=== PATIENT | female | born 1940 | race Caucasian/White ===

== ENCOUNTER 2022-12-06 18:45 | Emergency (ER) | payer MEDICARE, MEDICAID ==
[~2022-12-06] VITALS: Ht 180.3 cm; Wt 79.5 kg
[~2022-12-06 18:45] MED LIST: CELE-193 PO; CETI10CA PO; HYDR25TA4 PO; LISI40TA13 PO; METF500T PO; MULT-1085 PO; NIFE30TA8 PO; OMEP20CA15 PO; SIMV-42 PO; SYN0.088T PO
[2022-12-06 19:06] LABS: BASOPHILS # (AUTO) 0.1 X10'3 (0-0.2); BASOPHILS % (AUTO) 0.6 % (0-1); EOSINOPHILS # (AUTO) 0.3 X10'3 (0-0.9); EOSINOPHILS % (AUTO) 2.7 % (0-6); HEMATOCRIT 38.1 % (35.0-45.0); HEMOGLOBIN 12.9 g/dl (12.0-16.0); LYMPHOCYTES # (AUTO) 4.3 X10'3 (1.1-4.8); LYMPHOCYTES % (AUTO) 42.6 % (21-51); MEAN CORPUSCULAR HEMOGLOBIN 31.3 PG (27.0-31.0); MEAN CORPUSCULAR HGB CONC 33.7 g/dL (33.0-36.5); MEAN CORPUSCULAR VOLUME 92.6 FL (78-98); MEAN PLATELET VOLUME 8.7 FL (7.4-10.4); MONOCYTES # (AUTO) 0.7 X10'3 (0-0.9); MONOCYTES % (AUTO) 6.7 % (2-12); NEUTROPHILS # (AUTO) 4.8 X10'3 (1.8-7.7); NEUTROPHILS % (AUTO) 47.4 % (42-75); PLATELET COUNT 294 X10'3 (140-440); RED BLOOD COUNT 4.11 X10'6 (4.20-5.60); RED CELL DISTRIBUTION WIDTH 13.5 % (11.5-14.5); WHITE BLOOD COUNT 10.1 X10'3 (4.5-11.0)
[2022-12-06 19:21] LABS: ALANINE AMINOTRANSFERASE 23 U/L (12-78); ALBUMIN 3.3 G/DL (3.4-5.0); ALBUMIN/GLOBULIN RATIO 0.9 (1.1-1.5); ALKALINE PHOSPHATASE 116 IU/L (46-116); ANION GAP 10 (8-16); ASPARTATE AMINO TRANSFERASE 38 U/L (10-37); BILIRUBIN,TOTAL 0.4 MG/DL (0.1-1.0); BLOOD UREA NITROGEN 17 MG/DL (7-18); BUN/CREATININE RATIO 17.7 (10.0-20.0); CALCIUM 9.4 MG/DL (8.5-10.1); CHLORIDE 94 MMOL/L (99-107); CREATININE 0.96 MG/DL (0.40-0.90); GLUCOSE 153 MG/DL (70-104); POTASSIUM 4.3 MMOL/L (3.5-5.1); SODIUM 128 MMOL/L (135-145); TOTAL CARBON DIOXIDE 23.9 MMOL/L (24-32); eGFR 55 ML/MIN
[2022-12-06 19:30] LABS: MAGNESIUM 1.2 MG/DL (1.5-2.4)
[2022-12-06] MEDS ORDERED: LIDOcaine Viscous 15ml cup MM ONE (19:45)
[2022-12-06] MEDS ORDERED: mag hydrox/Alum hydrox/simeth 30ml oral suspension PO ONE (19:45)
--- NOTE | 2022-12-06 21:31 | NUR ---
MD aware of abnormal sodium level of 128, no orders at this time.
[2022-12-06 21:37] VITALS: BP 149/62
== END 2022-12-06 23:33 | disposition home or self-care (01) ==
LOC: ER 18:46
DX: R07.9 Chest pain, unspecified (principal); R11.0 Nausea; R06.02 Shortness of breath; E78.00 Pure hypercholesterolemia, unspecified; I10 Essential (primary) hypertension; K21.9 Gastro-esophageal reflux disease without esophagitis; E03.9 Hypothyroidism, unspecified; Z88.5 Allergy status to narcotic agent; Z91.018 Allergy to other foods
CPT/HCPCS: 36415; 71045; 80053; 83735; 83880; 84484; 85025; 93005; 99285

== ENCOUNTER 2023-01-30 19:21 | Inpatient (IN) | payer MEDICARE, MEDICAID ==
[~2023-01-30] VITALS: Ht 154.9 cm; Wt 76.8 kg
[2023-01-30 19:48] LABS: BASOPHILS % (AUTO) 0.1 % (0-1); EOSINOPHILS % (AUTO) 0.4 % (0-6); HEMATOCRIT 35.2 % (35.0-45.0); HEMOGLOBIN 11.5 g/dl (12.0-16.0); LYMPHOCYTES # (AUTO) 0.3 X10'3 (1.1-4.8); MEAN CORPUSCULAR HEMOGLOBIN 31.2 PG (27.0-31.0); MEAN CORPUSCULAR HGB CONC 32.8 g/dL (33.0-36.5); MEAN CORPUSCULAR VOLUME 95.1 FL (78-98); MEAN PLATELET VOLUME 8.8 FL (7.4-10.4); MONOCYTES % (AUTO) 0.2 % (2-12); NEUTROPHILS # (AUTO) 7.1 X10'3 (1.8-7.7); NEUTROPHILS % (AUTO) 95.3 % (42-75); PLATELET COUNT 135 X10'3 (140-440); RED BLOOD COUNT 3.71 X10'6 (4.20-5.60); RED CELL DISTRIBUTION WIDTH 14.3 % (11.5-14.5); WHITE BLOOD COUNT 7.5 X10'3 (4.5-11.0)
[2023-01-30 19:59] LABS: ALANINE AMINOTRANSFERASE 243 U/L (12-78); ALBUMIN 2.3 G/DL (3.4-5.0); ALBUMIN/GLOBULIN RATIO 0.7 (1.1-1.5); ALKALINE PHOSPHATASE 515 IU/L (46-116); ANION GAP 20 (8-16); ASPARTATE AMINO TRANSFERASE 253 U/L (10-37); BILIRUBIN,TOTAL 2.4 MG/DL (0.1-1.0); BLOOD UREA NITROGEN 26 MG/DL (7-18); BUN/CREATININE RATIO 17.2 (10.0-20.0); CHLORIDE 101 MMOL/L (99-107); CREATININE 1.51 MG/DL (0.40-0.90); GLUCOSE 111 MG/DL (70-104); POTASSIUM 3.1 MMOL/L (3.5-5.1); SODIUM 136 MMOL/L (135-145); TOTAL PROTEIN 5.5 G/DL (6.4-8.2); eGFR 33 ML/MIN
[2023-01-30 20:14] LABS: PLATELET ESTIMATE DECREASED; TOTAL CELLS COUNTED 100
[2023-01-30 20:15] LABS: TOXIC GRANULATION 2+; TOXIC VACUOLATION 1+
[2023-01-30 20:18] LABS: GIANT PLATELET FEW
[2023-01-30] MEDS ORDERED: CefTRIAXone/D5W-Rocephin 1gm 50 ML IV ONE (22:45)
[2023-01-30] MEDS ORDERED: normal saline 1000ml 1,000 ML IV ONE ×2 (22:45→22:50)
[2023-01-30] MEDS ORDERED: azithromycin/NS 500mg/250ml 250 ML IV ONE (22:45)
[2023-01-30] MEDS ORDERED: acetaminophen 325mg tablet PO ONE (23:15)
[2023-01-31] MEDS ORDERED: magnesium 2GM in 50ml NS 50 ML IV PRN (00:05)
[2023-01-31] MEDS ORDERED: ipratropium/albuterol 3ml nebule NEB PRN ×2 (00:05)
[2023-01-31] MEDS ORDERED: ondansetron/PF 4mg/2ml inj IV PRN (00:05)
[2023-01-31] MEDS ORDERED: magnesium 4gm in 100ml NS 100 ML IV PRN (00:05)
[2023-01-31] MEDS ORDERED: PERFLUTREN PROTEIN-A MICROSPHR (Optison) 0.22 MG/ML 3ML VIAL IV ONE (00:05)
[2023-01-31] MEDS ORDERED: potassium Cl 40MEQ/1/2NS 520ml 520 ML IV PRN (00:05)
[2023-01-31 00:25] LABS: CLARITY,URINE TURBID (Clear); COLOR,URINE YELLOW (Yellow); GLUCOSE, URINE NEGATIVE (Neg); KETONES,URINE TRACE mg/dl (Neg); LEUKOCYTE ESTERASE ,URINE MODERATE (Neg); NITRITES, URINE NEGATIVE (Neg); OCCULT BLOOD,URINE NEGATIVE (Neg); PH,URINE 5.5 (4.8-8.0); PROTEIN,URINE 30 mg/dl (Neg)
[2023-01-31 00:32] LABS: UA COLLECTION TYPE CLN CATCH MIDSTREAM
[2023-01-31 00:33] LABS: SQUAMOUS EPITHELIAL CELL,UR MANY /LPF (FEW)
[2023-01-31 00:34] LABS: BACTERIA,URINE 4+ /HPF (Neg); TRANSITIONAL EPI CELLS,URINE MODERATE /HPF; WBC,URINE TNTC /HPF (0-4)
[2023-01-31 00:35] LABS: RBC,URINE 0-2 /HPF (0-2)
--- NOTE | 2023-01-31 02:04 | NUR ---
DR CHAUDHARI PAGED REGARDING PTS BP 91/51
--- NOTE | 2023-01-31 02:09 | NUR ---
PER DR CHAUDHARI REPEAT LACTIC ACID AND GIVE 250 CC BS BOLUS
[2023-01-31] MEDS ORDERED: HYDR12.55 PO (02:51)
[2023-01-31] MEDS ORDERED: GABA300C PO (02:51)
[2023-01-31] MEDS ORDERED: NITR0.4T SL (02:51)
[2023-01-31] MEDS ORDERED: DICL-345 PO (03:11)
[2023-01-31] MEDS ORDERED: MONT-40 PO (03:11)
[2023-01-31] MEDS ORDERED: LEVO112T5 PO (03:11)
[2023-01-31] MEDS ORDERED: PRAV40TA3 PO (03:11)
[2023-01-31] MEDS ORDERED: FLUT16SP26 BOTHNARES (03:11)
[2023-01-31] MEDS ORDERED: BACL-11 PO (03:11)
[2023-01-31] MEDS ORDERED: BUDE10.2 IH (03:11)
[2023-01-31 04:38] LABS: POTASSIUM 2.9 MMOL/L (3.5-5.1)
[2023-01-31 04:39] LABS: MAGNESIUM 0.7 MG/DL (1.5-2.4)
[2023-01-31] MEDS: potassium Cl 20 mEq SR tablet PO PRN ×2 (04:44→09:42)
[2023-01-31] MEDS: magnesium Cl slow-release 64mg tablet PO PRN ×2 (04:45→20:00)
[2023-01-31] MEDS: sodium bicarbonate (8.4%) inj. 100 MEQ in dextrose 5%-water 1,000 ML IV SCH ×2 (06:27→17:43)
--- NOTE | 2023-01-31 06:29 | NUR ---
Introduced role and self to patient, patient alert, oriented at this time and with no current needs at this time. Updated on pending bed placement and bicarb drip.
--- NOTE | 2023-01-31 07:03 | NUR ---
Patient in room ED 7. I have received report from Husam pat and had the opportunity to ask questions and awaiting patients arrival
[2023-01-31] MEDS: K and/or MAG REPLACEMENT MC SCH ×2 (08:00→20:11)
[2023-01-31 09:11] LABS: ALANINE AMINOTRANSFERASE 215 U/L (12-78); ALBUMIN 2.2 G/DL (3.4-5.0); ALBUMIN/GLOBULIN RATIO 0.6 (1.1-1.5); ALKALINE PHOSPHATASE 179 IU/L (46-116); ANION GAP 14 (8-16); ASPARTATE AMINO TRANSFERASE 184 U/L (10-37); BLOOD UREA NITROGEN 29 MG/DL (7-18); BUN/CREATININE RATIO 19.6 (10.0-20.0); CALCIUM 7.4 MG/DL (8.5-10.1); CHLORIDE 102 MMOL/L (99-107); CREATININE 1.48 MG/DL (0.40-0.90); GLUCOSE 123 MG/DL (70-104); POTASSIUM 3.8 MMOL/L (3.5-5.1); SODIUM 131 MMOL/L (135-145); TOTAL CARBON DIOXIDE 15.1 MMOL/L (24-32); TOTAL PROTEIN 5.7 G/DL (6.4-8.2); eGFR 34 ML/MIN
[2023-01-31] MEDS: piperacillin/tazo 4.5gm/100ml 100 ML IV SCH ×2 (09:40→16:33)
[2023-01-31 09:54] VITALS: BP 124/55; PULSE 81; RESP 20; TEMP 98.2; O2SAT 95
--- NOTE | 2023-01-31 10:19 | NUR ---
REPORTED CRITICAL LAB VALUE TO PRIMARY RN
[2023-01-31 10:59] LABS: ABG BASE EXCESS -10.3 mmol/L (-2.0-2.0); ABG HCO3 13.3 mmol/L (22.0-26.0); ABG OXYGEN SATURATION 97.2 % (94-97); ABG PCO2 (T) 23.9 mmHg (32.0-45.0); ABG PO2 (T) 100.2 mmHg (75.0-100.0); ALLEN'S TEST POSITIVE; FCOHb 0.3 % (0.0-3.9); FMetHb 0.2 % (0.0-1.5); FO2Hb 96.7 % (94-97); PATIENT TEMPERATURE 37.2; TOTAL HEMOGLOBIN 11.4 G/dl (12.0-16.0)
[2023-01-31] MEDS: acetaminophen 325mg tablet PO PRN ×2 (12:00→17:46)
--- NOTE | 2023-01-31 12:03 | NUR ---
PATIENT ORIENTATED TO ROOM. C/O HEADACHE MEDICATED WILL CONTINUE TO MONITOR
[2023-01-31 15:00] VITALS: BP 122/51; PULSE 79; RESP 20; TEMP 98.8; O2SAT 96
--- NOTE | 2023-01-31 15:05 | NUR ---
Malnutrition consult: Pt unsure of wt loss though reports decreased appetite/PO intake per malnutrition risk screen with RN. Most recent scaled wt in EMR is 82 kg 01/08/17 with ER weight of 79.55 kg 12/06/22, current ER wt is 79.55 kg. Pt on a heart healthy diet and eating well, documented with 75% PO intake of first meal which is adequate to meet estimated nutrient needs. Pt with no documented significant decrease in muscle strength or edema. Pt currently lacks a minimum of two criteria for malnutrition though will continue to monitor s/s of malnutrition. Recommend liberalizing to regular diet in view of geriatric age. Will continue to follow. Addendum: 01/31/23 at [address] Amended: Links added.
[2023-01-31 18:00] VITALS: BP 121/54; PULSE 78; RESP 14; TEMP 97.8; O2SAT 95
--- NOTE | 2023-01-31 18:32 | NUR ---
heat pack and more tylenol given for headache. patient afebrile VSS. Report given to Christian MADRID
--- NOTE | 2023-01-31 19:02 | NUR ---
Patient in room PCU 3012. I have received report from Bibi and had the opportunity to ask questions and assume patient care.
[2023-01-31 19:35] VITALS: PULSE 78; RESP 16; O2SAT 97
--- NOTE | 2023-01-31 19:56 | NUR ---
Pt still having sinus headache. Pt states she would like a dose of Singulair, which she takes at home. Dr. Chambers paged and notified. PAGER ID: [phone] MESSAGE: [id number]. Alida Coulter. Pt has congestion headache. Tylenol ineffective. Would like to take Singulair tonight which she takes at home. Standard dose. Christian Ext [id number].
[2023-01-31 22:30] VITALS: BP 125/59; PULSE 75; RESP 18; TEMP 97.6; O2SAT 95
[2023-02-01] VITALS (11 sets, daily range): BP systolic 143–152; BP diastolic 60–77; PULSE 75–89; RESP 15–30; TEMP 97.7–98.7; O2SAT 94–96
[2023-02-01] MEDS: piperacillin/tazo 4.5gm/100ml 100 ML IV SCH ×3 (00:26→16:35)
[2023-02-01] MEDS: sodium bicarbonate (8.4%) inj. 100 MEQ in dextrose 5%-water 1,000 ML IV SCH (04:30)
--- NOTE | 2023-02-01 06:13 | NUR ---
Problems reprioritized. Patient report given, questions answered & plan of care reviewed with
--- NOTE | 2023-02-01 06:31 | NUR ---
Patient in room PCU 3012. I have received report from MILLY MADRID and had the opportunity to ask questions and assume patient care.
[2023-02-01] MEDS: montelukast 10mg tablet PO SCH (07:21)
[2023-02-01] MEDS: acetaminophen 325mg tablet PO PRN (07:22)
[2023-02-01] MEDS: K and/or MAG REPLACEMENT MC SCH ×2 (08:00→20:54)
[2023-02-01 08:10] LABS: BASOPHILS # (AUTO) 0.1 X10'3 (0-0.2); BASOPHILS % (AUTO) 0.2 % (0-1); EOSINOPHILS # (AUTO) 0.2 X10'3 (0-0.9); EOSINOPHILS % (AUTO) 0.7 % (0-6); HEMATOCRIT 33.6 % (35.0-45.0); LYMPHOCYTES % (AUTO) 7.4 % (21-51); MEAN CORPUSCULAR HEMOGLOBIN 30.5 PG (27.0-31.0); MEAN CORPUSCULAR HGB CONC 32.8 g/dL (33.0-36.5); MONOCYTES # (AUTO) 0.6 X10'3 (0-0.9); MONOCYTES % (AUTO) 2.1 % (2-12); NEUTROPHILS # (AUTO) 24.6 X10'3 (1.8-7.7); NEUTROPHILS % (AUTO) 89.6 % (42-75); PLATELET COUNT 141 X10'3 (140-440); RED BLOOD COUNT 3.61 X10'6 (4.20-5.60); RED CELL DISTRIBUTION WIDTH 14.3 % (11.5-14.5)
[2023-02-01 08:12] LABS: ALBUMIN 2.1 G/DL (3.4-5.0); ANION GAP 10 (8-16); BLOOD UREA NITROGEN 20 MG/DL (7-18); BUN/CREATININE RATIO 17.5 (10.0-20.0); CALCIUM 7.9 MG/DL (8.5-10.1); CHLORIDE 103 MMOL/L (99-107); CREATININE 1.14 MG/DL (0.40-0.90); GLUCOSE 121 MG/DL (70-104); MAGNESIUM 1.2 MG/DL (1.5-2.4); POTASSIUM 3.3 MMOL/L (3.5-5.1); SODIUM 138 MMOL/L (135-145); TOTAL CARBON DIOXIDE 24.6 MMOL/L (24-32); eGFR 45 ML/MIN
[2023-02-01 08:27] LABS: WHITE BLOOD COUNT 27.5 X10'3 (4.5-11.0)
[2023-02-01] MEDS: normal saline 1000ml 1,000 ML IV SCH ×2 (09:02→21:16)
[2023-02-01 09:17] LABS: ALANINE AMINOTRANSFERASE 145 U/L (12-78); ALBUMIN 2.1 G/DL (3.4-5.0); ALBUMIN/GLOBULIN RATIO 0.6 (1.1-1.5); ALKALINE PHOSPHATASE 157 IU/L (46-116); ASPARTATE AMINO TRANSFERASE 87 U/L (10-37); BILIRUBIN,DIRECT 0.9 MG/DL (0-0.3); BILIRUBIN,TOTAL 1.2 MG/DL (0.1-1.0); TOTAL PROTEIN 5.5 G/DL (6.4-8.2)
[2023-02-01 09:26] LABS: LARGE PLATELETS FEW; PLATELET ESTIMATE NORMAL; TOTAL CELLS COUNTED 100
[2023-02-01] MEDS ORDERED: aspirin/acetaminophen/caffeine tablet PO PRN (09:50)
[2023-02-01 10:36] LABS: HEMOGLOBIN A1C 6.5 % (4.5-6.2)
[2023-02-01] MEDS: magnesium Cl slow-release 64mg tablet PO PRN ×2 (10:38→21:04)
[2023-02-01] MEDS: potassium Cl 20 mEq SR tablet PO PRN ×3 (10:38→21:04)
--- NOTE | 2023-02-01 18:16 | NUR ---
patient is for MRCP in am, will need to be NPO>0300hrs. Worked with PT see note. WBC elevated today 27.5, Dr guerrero aware. Continues ABX. . report given to Tracy MADRID
--- NOTE | 2023-02-01 18:30 | NUR ---
Patient in room PCU 3012. I have received report from Bibi MADRID and had the opportunity to ask questions and assume patient care.
--- NOTE | 2023-02-01 21:38 | NUR ---
PAGED DR. CHAUDHARI FOR JAZZ GALVAN-HAS A CONTINUOS COUGH AND WAS WONDERING F SHE COULD GET ROBITUSSIN DM. PLEASE SUGGEST. THANK YOU. ADILIA MADRID PCU [id number]
[2023-02-02] VITALS (10 sets, daily range): BP systolic 102–183; BP diastolic 49–86; PULSE 57–89; RESP 13–21; TEMP 97.2–99.1; O2SAT 85–95
[2023-02-02] MEDS ORDERED: guaiFENesin/DM 10ml UD oral syrup PO PRN (00:10)
[2023-02-02] MEDS: piperacillin/tazo 4.5gm/100ml 100 ML IV SCH ×3 (00:28→16:02)
[2023-02-02] MEDS: normal saline 1000ml 1,000 ML IV SCH ×3 (04:50→16:14)
--- NOTE | 2023-02-02 06:31 | NUR ---
Patient in room PCU 3012. I have received report from ADILIA MADRID and had the opportunity to ask questions and assume patient care.
--- NOTE | 2023-02-02 06:44 | NUR ---
Problems reprioritized. Patient report given, questions answered & plan of care reviewed with Robert MADRID.
[2023-02-02 06:46] LABS: BASOPHILS # (AUTO) 0.1 X10'3 (0-0.2); BASOPHILS % (AUTO) 0.4 % (0-1); EOSINOPHILS # (AUTO) 0.3 X10'3 (0-0.9); EOSINOPHILS % (AUTO) 1.4 % (0-6); HEMOGLOBIN 10.5 g/dl (12.0-16.0); LYMPHOCYTES # (AUTO) 2.5 X10'3 (1.1-4.8); LYMPHOCYTES % (AUTO) 12.1 % (21-51); MEAN CORPUSCULAR HEMOGLOBIN 30.2 PG (27.0-31.0); MEAN CORPUSCULAR HGB CONC 32.8 g/dL (33.0-36.5); MEAN CORPUSCULAR VOLUME 92.2 FL (78-98); MEAN PLATELET VOLUME 9.4 FL (7.4-10.4); MONOCYTES # (AUTO) 0.7 X10'3 (0-0.9); MONOCYTES % (AUTO) 3.6 % (2-12); NEUTROPHILS # (AUTO) 16.8 X10'3 (1.8-7.7); NEUTROPHILS % (AUTO) 82.5 % (42-75); PLATELET COUNT 150 X10'3 (140-440); RED BLOOD COUNT 3.47 X10'6 (4.20-5.60); RED CELL DISTRIBUTION WIDTH 14.4 % (11.5-14.5); WHITE BLOOD COUNT 20.4 X10'3 (4.5-11.0)
[2023-02-02 07:07] LABS: ALANINE AMINOTRANSFERASE 101 U/L (12-78); ALBUMIN 2.1 G/DL (3.4-5.0); ALBUMIN/GLOBULIN RATIO 0.6 (1.1-1.5); ALKALINE PHOSPHATASE 165 IU/L (46-116); ANION GAP 9 (8-16); ASPARTATE AMINO TRANSFERASE 38 U/L (10-37); BILIRUBIN,TOTAL 0.8 MG/DL (0.1-1.0); BLOOD UREA NITROGEN 15 MG/DL (7-18); BUN/CREATININE RATIO 16.3 (10.0-20.0); CALCIUM 8.2 MG/DL (8.5-10.1); CHLORIDE 106 MMOL/L (99-107); CREATININE 0.92 MG/DL (0.40-0.90); GLUCOSE 116 MG/DL (70-104); MAGNESIUM 1.1 MG/DL (1.5-2.4); POTASSIUM 4.3 MMOL/L (3.5-5.1); SODIUM 136 MMOL/L (135-145); TOTAL CARBON DIOXIDE 20.6 MMOL/L (24-32); TOTAL PROTEIN 5.7 G/DL (6.4-8.2); eGFR 58 ML/MIN
[2023-02-02] MEDS: montelukast 10mg tablet PO SCH (07:17)
[2023-02-02] MEDS: K and/or MAG REPLACEMENT MC SCH ×2 (08:00→20:00)
--- NOTE | 2023-02-02 11:34 | NUR ---
PT. REFUSED PT
[2023-02-02 11:43] LABS: CLARITY,URINE CLEAR (Clear); COLOR,URINE YELLOW (Yellow); GLUCOSE, URINE NEGATIVE (Neg); KETONES,URINE NEGATIVE (Neg); LEUKOCYTE ESTERASE ,URINE NEGATIVE (Neg); NITRITES, URINE NEGATIVE (Neg); OCCULT BLOOD,URINE NEGATIVE (Neg); PROTEIN,URINE NEGATIVE (Neg); UROBILINOGEN,URINE 0.2 E.U/dL (0.2-1.0)
[2023-02-02 11:44] LABS: UA COLLECTION TYPE NON-SPECIFIED
--- NOTE | 2023-02-02 14:20 | NUR ---
promotional table spacer promotional table spacer Page Sent promotional table spacer PAGER ID: [phone] MESSAGE: [facility], TELE, [phone], RE: [phone], PT. [facility] RESULTED, DO YOU STILL WANT HER NPO? THANKS Addendum: 02/02/23 at 1530 by Josh Portillo RN SAID A CLEAR LIQUID DIET IS OKAY
[2023-02-02] MEDS: magnesium Cl slow-release 64mg tablet PO PRN (14:37)
--- NOTE | 2023-02-02 16:08 | NUR ---
PAGER ID: [phone] MESSAGE: [facility], [facility], [phone]. RE: [phone]. PT. REQUESTED PANTOPRAZOLE SHE TAKES OMEPRAZOLE AT HOME. NO PATOPRAZOLE ON EMAR
[2023-02-02 16:56] LABS: HBSAG SCREEN Negative (Negative); HEP B CORE AB, TOT Negative (Negative)
[2023-02-02] MEDS ORDERED: furosemide 40mg/4ml inj IV ONE (17:55)
[2023-02-02] MEDS ORDERED: magnesium 2GM in 50ml NS 50 ML IV ONE (18:00)
--- NOTE | 2023-02-02 18:17 | NUR ---
Problems reprioritized. Patient report given TO FERMIN MADRID, questions answered & plan of care reviewed with .
[2023-02-02] MEDS ORDERED: VANCOmycin 2,000MG in NS 500ml IV soln IV ONE (18:20)
[2023-02-02] MEDS ORDERED: nitroGLYCERIN 0.4mg SUBLingual tab SL PRN (18:40)
--- NOTE | 2023-02-02 18:50 | NUR ---
Patient in room PCU 3012. I have received report from DARIN MADRID and had the opportunity to ask questions and assume patient care.
[2023-02-02] MEDS: baclofen 10mg tablet PO SCH (19:11)
[2023-02-02] MEDS: budesonide 0.5mg/2ml UD nebule IH SCH (20:28)
[2023-02-02] MEDS: albuterol 2.5 MG/3 ML nebule NEB SCH (20:28)
[2023-02-02] MEDS: gabapentin 300mg capsule PO SCH (20:46)
[2023-02-02] MEDS: levoTHYROXINE 112mcg tablet PO SCH (20:55)
[2023-02-03] VITALS (11 sets, daily range): BP systolic 115–168; BP diastolic 55–73; PULSE 63–88; RESP 16–22; TEMP 97.4–98.7; O2SAT 93–98
[2023-02-03] MEDS: magnesium oxide 400mg tablet PO SCH ×4 (03:25→23:36)
[2023-02-03] MEDS: piperacillin/tazo 4.5gm/100ml 100 ML IV SCH ×4 (03:25→23:37)
--- NOTE | 2023-02-03 06:30 | NUR ---
Patient in room PCU 3012. I have received report from FERMIN MADRID and had the opportunity to ask questions and assume patient care.
--- NOTE | 2023-02-03 06:42 | NUR ---
Problems reprioritized. Patient report given, questions answered & plan of care reviewed with DARIN MADRID.
[2023-02-03] MEDS: furosemide 40mg/4ml inj IV SCH ×2 (07:06→20:43)
[2023-02-03] MEDS: HYDROchlorothiazide 12.5mg capsule PO SCH (07:06)
[2023-02-03] MEDS: NIFEdipine XL 30mg tablet PO SCH (07:07)
[2023-02-03] MEDS: lisinopril 20mg tablet PO SCH (07:07)
[2023-02-03] MEDS: baclofen 10mg tablet PO SCH ×2 (07:07→20:44)
[2023-02-03] MEDS: montelukast 10mg tablet PO SCH (07:08)
[2023-02-03] MEDS: pantoprazole 40mg Tablet.DR PO SCH (07:08)
[2023-02-03 07:24] LABS: BASOPHILS # (AUTO) 0.1 X10'3 (0-0.2); BASOPHILS % (AUTO) 0.6 % (0-1); EOSINOPHILS # (AUTO) 0.5 X10'3 (0-0.9); EOSINOPHILS % (AUTO) 4.4 % (0-6); HEMATOCRIT 36.9 % (35.0-45.0); HEMOGLOBIN 12.1 g/dl (12.0-16.0); LYMPHOCYTES # (AUTO) 3.4 X10'3 (1.1-4.8); LYMPHOCYTES % (AUTO) 29.9 % (21-51); MEAN CORPUSCULAR HEMOGLOBIN 30.5 PG (27.0-31.0); MEAN CORPUSCULAR HGB CONC 32.7 g/dL (33.0-36.5); MEAN CORPUSCULAR VOLUME 93.1 FL (78-98); MEAN PLATELET VOLUME 9.5 FL (7.4-10.4); MONOCYTES # (AUTO) 0.5 X10'3 (0-0.9); MONOCYTES % (AUTO) 4.7 % (2-12); NEUTROPHILS % (AUTO) 60.4 % (42-75); PLATELET COUNT 185 X10'3 (140-440); RED BLOOD COUNT 3.97 X10'6 (4.20-5.60); RED CELL DISTRIBUTION WIDTH 14.4 % (11.5-14.5); WHITE BLOOD COUNT 11.5 X10'3 (4.5-11.0)
[2023-02-03] MEDS: albuterol 2.5 MG/3 ML nebule NEB SCH ×3 (07:47→20:24)
[2023-02-03] MEDS: budesonide 0.5mg/2ml UD nebule IH SCH ×2 (07:47→20:24)
[2023-02-03 07:53] LABS: MAGNESIUM 1.4 MG/DL (1.5-2.4)
[2023-02-03] MEDS: K and/or MAG REPLACEMENT MC SCH ×2 (08:00→20:44)
[2023-02-03 10:24] LABS: ALANINE AMINOTRANSFERASE 82 U/L (12-78); ALBUMIN 2.4 G/DL (3.4-5.0); ALBUMIN/GLOBULIN RATIO 0.6 (1.1-1.5); ALKALINE PHOSPHATASE 185 IU/L (46-116); ANION GAP 11 (8-16); ASPARTATE AMINO TRANSFERASE 26 U/L (10-37); BILIRUBIN,TOTAL 0.7 MG/DL (0.1-1.0); BLOOD UREA NITROGEN 11 MG/DL (7-18); CALCIUM 9.4 MG/DL (8.5-10.1); CHLORIDE 104 MMOL/L (99-107); CREATININE 0.92 MG/DL (0.40-0.90); GLUCOSE 100 MG/DL (70-104); POTASSIUM 3.8 MMOL/L (3.5-5.1); SODIUM 137 MMOL/L (135-145); TOTAL CARBON DIOXIDE 21.6 MMOL/L (24-32); TOTAL PROTEIN 6.5 G/DL (6.4-8.2); eGFR 58 ML/MIN
[2023-02-03] MEDS ORDERED: potassium Cl 40MEQ/1/2NS 520ml 520 ML IV PRN (12:30)
[2023-02-03] MEDS ORDERED: magnesium 4gm in 100ml NS 100 ML IV PRN (12:30)
[2023-02-03] MEDS ORDERED: magnesium 2GM in 50ml NS 50 ML IV PRN (12:30)
[2023-02-03] MEDS ORDERED: potassium Cl 20 mEq SR tablet PO PRN (12:30)
[2023-02-03] MEDS: magnesium Cl slow-release 64mg tablet PO PRN ×2 (12:42→20:45)
--- NOTE | 2023-02-03 18:38 | NUR ---
Problems reprioritized. Patient report given TO GHADA MADRID, questions answered & plan of care reviewed with .
[2023-02-03] MEDS ORDERED: vancomycin/NS 1 GM ADD-VANTAGE 250 ML IV SCH (19:00)
[2023-02-03] MEDS: levoTHYROXINE 112mcg tablet PO SCH (20:44)
[2023-02-03] MEDS: gabapentin 300mg capsule PO SCH (20:44)
[2023-02-03] MEDS ORDERED: MESSAGE TO PHARMACY PO ONE (21:40)
[2023-02-03] MEDS ORDERED: dextrose 50%-water 50ml dispensing syringe IV PRN ×2 (21:40)
[2023-02-03] MEDS ORDERED: DEXTROSE 15 GM of carb/4 tabs (each vial/BOTTLE has 4 tablets) PO PRN ×2 (21:40)
[2023-02-03] MEDS ORDERED: glucagon, human recombinant 1mg kit SUBCUT PRN (21:40)
[2023-02-04] VITALS (7 sets, daily range): BP systolic 126–130; BP diastolic 55–75; PULSE 68–88; RESP 14–22; TEMP 97.7–98; O2SAT 93–98
[2023-02-04 06:02] LABS: BASOPHILS # (AUTO) 0.1 X10'3 (0-0.2); BASOPHILS % (AUTO) 1.1 % (0-1); EOSINOPHILS # (AUTO) 0.6 X10'3 (0-0.9); HEMATOCRIT 35.6 % (35.0-45.0); HEMOGLOBIN 11.8 g/dl (12.0-16.0); LYMPHOCYTES # (AUTO) 2.8 X10'3 (1.1-4.8); LYMPHOCYTES % (AUTO) 34.5 % (21-51); MEAN CORPUSCULAR HEMOGLOBIN 30.9 PG (27.0-31.0); MEAN CORPUSCULAR HGB CONC 33.2 g/dL (33.0-36.5); MEAN CORPUSCULAR VOLUME 93.1 FL (78-98); MEAN PLATELET VOLUME 9.4 FL (7.4-10.4); MONOCYTES # (AUTO) 0.6 X10'3 (0-0.9); MONOCYTES % (AUTO) 7.5 % (2-12); NEUTROPHILS % (AUTO) 49.9 % (42-75); PLATELET COUNT 185 X10'3 (140-440); RED BLOOD COUNT 3.82 X10'6 (4.20-5.60); RED CELL DISTRIBUTION WIDTH 14.2 % (11.5-14.5); WHITE BLOOD COUNT 8.1 X10'3 (4.5-11.0)
--- NOTE | 2023-02-04 06:36 | NUR ---
Patient in room PCU 3012. I have received report from GHADA MADRID and had the opportunity to ask questions and assume patient care.
--- NOTE | 2023-02-04 06:36 | NUR ---
Problems reprioritized. Patient report given, questions answered & plan of care reviewed with SONIYA. Addendum: 02/04/23 at 0637 by Sergio Neumann RN Amended: Links added.
[2023-02-04 06:42] LABS: ALANINE AMINOTRANSFERASE 57 U/L (12-78); ALBUMIN 2.3 G/DL (3.4-5.0); ALBUMIN/GLOBULIN RATIO 0.6 (1.1-1.5); ALKALINE PHOSPHATASE 166 IU/L (46-116); ANION GAP 12 (8-16); ASPARTATE AMINO TRANSFERASE 20 U/L (10-37); BILIRUBIN,TOTAL 0.6 MG/DL (0.1-1.0); BLOOD UREA NITROGEN 14 MG/DL (7-18); BUN/CREATININE RATIO 12.4 (10.0-20.0); C-REACTIVE PROTEIN 3.47 MG/DL (0.0-0.5); CALCIUM 9.1 MG/DL (8.5-10.1); CHLORIDE 101 MMOL/L (99-107); CREATININE 1.13 MG/DL (0.40-0.90); GLUCOSE 119 MG/DL (70-104); MAGNESIUM 1.1 MG/DL (1.5-2.4); POTASSIUM 3.3 MMOL/L (3.5-5.1); SODIUM 139 MMOL/L (135-145); TOTAL CARBON DIOXIDE 25.8 MMOL/L (24-32); TOTAL PROTEIN 6.1 G/DL (6.4-8.2); eGFR 46 ML/MIN
[2023-02-04] MEDS: furosemide 40mg/4ml inj IV SCH (07:01)
[2023-02-04] MEDS: baclofen 10mg tablet PO SCH (07:01)
[2023-02-04] MEDS: magnesium oxide 400mg tablet PO SCH (07:02)
[2023-02-04] MEDS: pantoprazole 40mg Tablet.DR PO SCH (07:02)
[2023-02-04] MEDS: montelukast 10mg tablet PO SCH (07:02)
[2023-02-04] MEDS: lisinopril 20mg tablet PO SCH (07:02)
[2023-02-04] MEDS: NIFEdipine XL 30mg tablet PO SCH (07:02)
[2023-02-04] MEDS: HYDROchlorothiazide 12.5mg capsule PO SCH (07:03)
[2023-02-04] MEDS: piperacillin/tazo 4.5gm/100ml 100 ML IV SCH (07:03)
[2023-02-04] MEDS: budesonide 0.5mg/2ml UD nebule IH SCH (07:36)
[2023-02-04] MEDS: albuterol 2.5 MG/3 ML nebule NEB SCH ×2 (07:36→15:00)
[2023-02-04] MEDS: magnesium Cl slow-release 64mg tablet PO PRN (07:40)
[2023-02-04] MEDS: potassium Cl 20 mEq SR tablet PO PRN ×2 (07:40→11:30)
[2023-02-04 07:55] LABS: TOTAL CELLS COUNTED 100
[2023-02-04 07:56] LABS: PLATELET ESTIMATE NORMAL
[2023-02-04] MEDS: K and/or MAG REPLACEMENT MC SCH (08:00)
[2023-02-04] MEDS: insulin Lispro (HumaLOG) vial - multi-dose SQ SCH ×2 (08:46→13:51)
--- NOTE | 2023-02-04 10:51 | NUR ---
O2 Sat at rest on room air: 87% If below 89%: Recovery O2 Sat at rest on ___LPM:___%:___% via (mask/nasal cannula, etc..) No further documentation is necessary. If O2 Sat did not drop below 89% on room air,ambulate patient on room air. O2 Sat while ambulating on room air:___% Recovery O2 Sat while ambulating on ___LPM:___% No further documentation is necessary. If patient does not drop below 89% while ambulating, he/she does not qualify for home O2. Addendum: 02/04/23 at 1053 by Josh Portillo RN RECOVERY ON 02 SAT AT REST 2LPM 94%, VIA NASAL CANNULA
[2023-02-04] MEDS ORDERED: FURO20TA4 PO (14:25)
[2023-02-04] MEDS ORDERED: POTA-207 PO (14:25)
[2023-02-04] MEDS ORDERED: AMOX-117 PO (14:25)
--- NOTE | 2023-02-04 15:41 | NUR ---
PT. ALERT ORIENTATED AND STABLE UPON DISCHARGE, PT. IV CANNULA WHOLE AND INTACT UPON DISCHARGE. PT. AND DAUGHTER EDUCATED TO FOLLOW UP WITH PRIMARY CARE PROVIDER WITHIN 1 WEEK, AND BRAND [employer]BASS[employer] PROMOTIONAL MODEL WITHIN 2 WEEKS. PT. EDUCATED ON NEW MEDICATIONS AND TO COMPLY WITH THEM. PT. SAFELY TRANSPORTED INTO PRIVATE VEHICLE WITH DAUGHTER. PT. LEFT WITH NEW OXYGEN TANK.
[2023-02-04] MEDS ORDERED: VANCOMYCIN 750MG IV in NS 250 ML IV SCH (19:00)
[2023-02-04] MEDS ORDERED: insulin glargine (Lantus) pen - multi-dose SQ SCH (21:00)
[2023-02-07] MEDS ORDERED: VANCOMYCIN LEVEL IV ONE (18:30)
== END 2023-02-04 15:31 | disposition home or self-care (01) | DRG 871 ==
LOC: ER 19:21 → ED HOLD 01-31 00:07 → PCU 3S 01-31 07:15
PROVIDERS: ADMIT Internal Medicine; ATTEND Internal Medicine
DX: A41.9 Sepsis, unspecified organism (principal); I50.33 Acute on chronic diastolic (congestive) heart failure; J96.01 Acute respiratory failure with hypoxia; N17.9 Acute kidney failure, unspecified; N39.0 Urinary tract infection, site not specified; E87.20 Acidosis, unspecified; R18.8 Other ascites; E87.1 Hypo-osmolality and hyponatremia; I13.0 Hypertensive heart and chronic kidney disease with heart failure and stage 1 through stage 4 chronic kidney disease, or unspecified chronic kidney disease; Z20.822 Contact with and (suspected) exposure to COVID-19; K21.9 Gastro-esophageal reflux disease without esophagitis; J44.9 Chronic obstructive pulmonary disease, unspecified; E11.22 Type 2 diabetes mellitus with diabetic chronic kidney disease; N18.9 Chronic kidney disease, unspecified; E78.00 Pure hypercholesterolemia, unspecified; I08.1 Rheumatic disorders of both mitral and tricuspid valves; I27.20 Pulmonary hypertension, unspecified; R74.01 Elevation of levels of liver transaminase levels; E83.42 Hypomagnesemia; E87.6 Hypokalemia; E03.9 Hypothyroidism, unspecified; Z85.3 Personal history of malignant neoplasm of breast; Z90.49 Acquired absence of other specified parts of digestive tract; Z88.5 Allergy status to narcotic agent; Z88.8 Allergy status to other drugs, medicaments and biological substances; Z91.012 Allergy to eggs; Z79.899 Other long term (current) drug therapy
CPT/HCPCS: 36415; 36600; 71045; 71250; 74181; 76700; 80048; 80053; 80076; 81001; 81003; 82803; 82948; 83036; 83605; 83735; 83880; 84132; 84145; 84443; 84484; 85007; 85018; 85025; 86140; 86704; 86705; 87040; 87081; 87340; 87811; 93306; 94640; 94760; 97110; 97116; 97161; 97530; 99285; A4615; G0378; J0456; J0696; J1815; J1940; J2405; J2543; J3370; J3475; J3490; J7030; J7040; J7050; J7070